=== PATIENT | female | born 1960 | race Caucasian/White ===

== ENCOUNTER 2017-08-30 18:14 | Observation (INO) | payer OTHER ==
[~2017-08-30] VITALS: Ht 149.9 cm; Wt 46.9 kg
[~2017-08-30 18:14] MED LIST: AMLO10TA2 PO; HYDR25TA5 PO
[2017-08-30 18:19] VITALS: BP 131/94; PULSE 84; RESP 16; TEMP 97.5; O2SAT 99
[2017-08-30] MEDS ORDERED: ASPI81CH6 CHEW (18:53)
[2017-08-30] MEDS ORDERED: PRED1 PO (18:53)
[2017-08-30] MEDS ORDERED: LISI2.5T3 PO (18:53)
[2017-08-30] MEDS ORDERED: SODIUM CHLORIDE 0.9% FLUSH 10 ML FLUSH IVF PRN (19:45)
[2017-08-30] MEDS ORDERED: ASPIRIN 325 MG TAB PO ONE (19:45)
[2017-08-30 19:47] VITALS: BP 120/73; PULSE 78; RESP 18; O2SAT 99
[2017-08-30 19:49] VITALS: BP 125/78; PULSE 81; RESP 18; O2SAT 99
[2017-08-30 20:09] LABS: AUTOMATED NEUTROPHIL # 9.7 TH/MM3 (1.8-7.7); BASOPHIL # 0.1 TH/MM3 (0-0.2); BASOPHIL % 0.6 % (0.0-2.0); EOSINOPHIL % 0.3 % (0.0-4.0); HEMATOCRIT 45.5 % (35.0-46.0); HEMOGLOBIN 15.1 GM/DL (11.6-15.3); LYMPH % 15.6 % (9.0-44.0); LYMPHOCYTE # 1.9 TH/MM3 (1.0-4.8); MEAN CELL VOLUME 91.1 FL (80.0-100.0); MEAN CORPUSCULAR HEMOGLOBIN 30.3 PG (27.0-34.0); MEAN CORPUSCULAR HGB CONC 33.3 % (32.0-36.0); MEAN PLATELET VOLUME 8.1 FL (7.0-11.0); MONO % 5.1 % (0.0-8.0); MONOCYTE # 0.6 TH/MM3 (0-0.9); NEUT % 78.4 % (16.0-70.0); PLATELET COUNT 378 TH/MM3 (150-450); RED CELL DISTRIBUTION WIDTH 12.3 % (11.6-17.2); WHITE BLOOD COUNT 12.3 TH/MM3 (4.0-11.0)
[2017-08-30 20:19] LABS: CHLORIDE 93 MEQ/L (98-107); SODIUM (NA) 126 MEQ/L (136-145)
[2017-08-30 20:23] LABS: ALBUMIN 3.8 GM/DL (3.4-5.0); BICARBONATE 21.5 MEQ/L (21.0-32.0); BLOOD UREA NITROGEN 10 MG/DL (7-18); CALCIUM 8.7 MG/DL (8.5-10.1); GLUCOSE,RANDOM 97 MG/DL (74-106)
[2017-08-30 20:25] LABS: PROTHROMBIN TIME - PATIENT 10.3 SEC (9.8-11.6)
[2017-08-30 20:26] LABS: ALT (GPT) 21 U/L (10-53); AST (GOT) 17 U/L (15-37); CREATININE 0.59 MG/DL (0.50-1.00); GLOMERULAR FILTRATION RATE 105 ML/MIN (>89)
[2017-08-30 20:28] LABS: TOTAL BILIRUBIN ADULT 0.4 MG/DL (0.2-1.0); TOTAL PROTEIN 7.4 GM/DL (6.4-8.2)
--- NOTE | 2017-08-30 20:28 | RADRPT ---
EXAM DATE/TIME: 08/30/2017 19:46 [facility] COMPARISON: No previous studies available for comparison. INDICATIONS : Chest pain/ MEDICAL HISTORY : None. SURGICAL HISTORY : None. ENCOUNTER: Initial ACUITY: 1 day PAIN SCORE: 5/10 LOCATION: Left chest FINDINGS: PA and lateral views of the chest demonstrate the lungs to be symmetrically aerated without evidence of mass, infiltrate or effusion. There is a small calcified granuloma in the right upper lung. The c ardiomediastinal contours are unremarkable. Osseous structures are intact. Pectus excavatum CONCLUSION: No acute pulmonary infiltrates. Jose Antonio Day MD on August 30, 2017 at 20:25 Board Certified Radiologist. This report was verified electronically.
[2017-08-30 20:29] LABS: ALKALINE PHOSPHATASE 64 U/L (45-117)
[2017-08-30] MEDS ORDERED: SODIUM CHLOR 0.9% 1000 ML INJ 1,000 ML IV ONE (20:30)
--- NOTE | 2017-08-30 20:30 | RADRPT ---
EXAM DATE/TIME: 08/30/2017 19:46 [facility] COMPARISON: No previous studies available for comparison. INDICATIONS : Back pain. Sciatica. MEDICAL HISTORY : None. SURGICAL HISTORY : None. ENCOUNTER: Initial ACUITY: 1 week PAIN SCORE: 10/10 LOCATION: L-spine FINDINGS: Two view examination was performed. There are five non-rib bearing vertebral bodies. There is grade 1 anterior spondylolisthesis of L4 over L5. No compression fractures are demonstrated. There is some mild degenerative changes present. There is good alignment of the SI joints.. CONCLUSION: 1. Grade 1 anterior spondylolisthesis of L4 over L5 2. Mild degenerative changes. Jose Antonio Day MD on August 30, 2017 at 20:26 Board Certified Radiologist. This report was verified electronically.
[2017-08-30 20:31] LABS: TROPONIN I LESS THAN 0.02 NG/ML (0.02-0.05)
[2017-08-30 20:43] LABS: BILIRUBIN, URINE NEG (NEG); BLOOD, URINE NEG (NEG); GLUCOSE,URINE NEG (NEG); KETONE, URINE NEG (NEG); NITRITE,URINE NEG (NEG); URINE LEUKOCYTE ESTERASE NEG (NEG)
[2017-08-30 20:51] LABS: URINE COLOR CLEAR (YELLW/STRAW)
[2017-08-30 20:57] LABS: SQUAMOUS EPITHELIAL CELL URINE 0-5 /hpf (0-5)
[2017-08-30] MEDS: SODIUM CHLORIDE 0.9% FLUSH 10 ML FLUSH IV FLUSH SCH (21:27)
[2017-08-30] MEDS ORDERED: SODIUM CHLORIDE 0.9% FLUSH 10 ML FLUSH IV FLUSH PRN (21:30)
[2017-08-30] MEDS ORDERED: CYCLOBENZAPRINE HCL 10 MG TAB PO ONE (21:30)
--- NOTE | 2017-08-30 21:40 | PD ---
HPI Chief Complaint: Pain: Acute or Chronic Time Seen by Provider: 19:27 Travel History International Travel<30 days: No Contact w/Intl Traveler<30days: No Traveled to known affect area: No History of Present Illness HPI Patient presents to the emergency department complaint of back pain and chest pain. Patient states that since last Friday she has had bouts with sciatic pain and saw her doctor on yesterday. gave her a steroid shot and placed her on prednisone. Complaining of extreme pain in her lower back with radiation down her left leg. Also states that she was putting up laundry and she developed chest pain left side also mid upper back pain. Left-sided chest pain is described as being intermittent, 5 minutes in duration, nonradiating, alleviated with rubbing, not rubbing aggravates the pain. Denies any trauma, fever, chills, dyspnea, edema, nausea, vomiting, recent travel, cough. 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 Of note the back pain has been present intermittently for 1 year. PFSH Past Medical History Hx Anticoagulant Therapy: Yes (BABY ASA) Cardiovascular Problems: Yes (HTN) Diabetes: No Hypertension: Yes Medical other: Yes (SCIATICA) Tetanus Vaccination: < 5 Years Influenza Vaccination: No ?: Not Menopausal: Yes Past Surgical History Section: Yes Social History Alcohol Use: Yes (6 PACK PER DAY) Tobacco Use: Yes (1 ppd) Substance Use: No Allergies-Medications (Allergen,Severity, Reaction): Coded Allergies: erythromycin base (Verified Adverse Reaction, Intermediate, NAUSEA, ) Reported Meds & Prescriptions Reported Meds & Active Scripts Active Reported Prednisone 1 Mg Tab Unknown Dose PO DIRECTED Aspirin Low Dose (Aspirin) 81 Mg Chew 81 Mg CHEW DAILY Lisinopril 2.5 Mg Tab Unknown Dose PO DAILY Amlodipine (Amlodipine Besylate) 10 Mg Tab 10 Mg PO DAILY Review of Systems Except as stated in HPI: all other systems reviewed are Neg Physical Exam Narrative GENERAL: No acute distress. SKIN: Focused skin assessment warm/dry. HEAD: Atraumatic. Normocephalic. EYES: Pupils equal and round. No scleral icterus. No injection or drainage. ENT: No nasal bleeding or discharge. Mucous membranes pink and moist. NECK: Trachea midline. No JVD. No focal C-spine tenderness. CARDIOVASCULAR: Regular rate and rhythm. No murmur appreciated. Chest wall TTP. RESPIRATORY: No accessory muscle use. Clear to auscultation. Breath sounds equal bilaterally. No focal T-spine tenderness. GASTROINTESTINAL: Abdomen soft, non-tender, nondistended. Hepatic and splenic margins not palpable. MUSCULOSKELETAL: No obvious deformities. No clubbing. No cyanosis. No edema. Positive L-spine tenderness. NEUROLOGICAL: Awake and alert. No obvious cranial nerve deficits. Motor grossly within normal limits. Normal speech. PSYCHIATRIC: Appropriate mood and affect; insight and judgment normal. Data Data Last Documented VS Vital Signs Date Time Temp Pulse Resp B/P (MAP) Pulse Ox O2 Delivery O2 Flow Rate FiO2 08/30/17 19:49 81 18 125/78 (94) 99 Room Air 08/30/17 18:19 97.5 Orders Orders Electrocardiogram (08/30/17 19:38) Ckmb (Isoenzyme) Profile (08/30/17 19:38) Complete Blood Count With Diff (08/30/17 19:38) Comprehensive Metabolic Panel (08/30/17 19:38) Magnesium (Mg) (08/30/17 19:38) Prothrombin Time / Inr (Pt) (08/30/17 19:38) Act Partial Throm Time (Ptt) (08/30/17 19:38) Troponin I (08/30/17 19:38) Ecg Monitoring (08/30/17 19:38) Iv Access Insert/Monitor (08/30/17 19:38) Oximetry (08/30/17 19:38) Aspirin (Aspirin) (08/30/17 19:45) Sodium Chloride 0.9% Flush (Ns Flush) (08/30/17 19:45) Chest, Pa & Lat (08/30/17 19:38) Spine, Lumbar - Ltd (Ap & Lat) (08/30/17 19:38) CKMB (08/30/17 19:56) CKMB% (08/30/17 19:56) Urinalysis - C+S If Indicated (08/30/17 20:29) Sodium Chlor 0.9% 1000 Ml Inj (Ns 1000 M (08/30/17 20:30) Cyclobenzaprine (Flexeril) (08/30/17 21:30) Place In Observation (08/30/17 21:18) Activity Bed Rest With Brp (08/30/17:18) Vital Signs (Adult) Q4H (08/30/17:18) Cardiac Rhythm .As Directed (08/30/17:) Notify Dr: Other .PRN (08/30/17:18) Notify Parameters (08/30/17:18) Resp Oxygen Nasal Cannula (08/30/17 ) Ckmb (Isoenzyme) Profile (08/30/17 23:00) Ckmb (Isoenzyme) Profile (08/31/17 02:00) Troponin I (08/30/17 23:00) Troponin I (08/31/17 02:00) Electrocardiogram (08/30/17 23:00) Electrocardiogram (08/31/17 02:00) ^ Obtain (08/30/17:18) Sodium Chloride 0.9% Flush (Ns Flush) (08/30/17 21:30) Sodium Chloride 0.9% Flush (Ns Flush) (08/30/17 21:30) Canceling And Cutting Control Clerk / Telemetry [email or web address] (08/30/17:18) Admit Order (Ed Use Only) (08/30/17 21:18) Labs Laboratory Tests Test 08/30/17 19:56 08/30/17 20:36 White Blood Count 12.3 TH/MM3 Red Blood Count 5.00 MIL/MM3 Hemoglobin 15.1 GM/DL Hematocrit 45.5 % Mean Corpuscular Volume 91.1 FL Mean Corpuscular Hemoglobin 30.3 PG Mean Corpuscular Hemoglobin Concent 33.3 % Red Cell Distribution Width 12.3 % Platelet Count 378 TH/MM3 Mean Platelet Volume 8.1 FL Neutrophils (%) (Auto) 78.4 % Lymphocytes (%) (Auto) 15.6 % Monocytes (%) (Auto) 5.1 % Eosinophils (%) (Auto) 0.3 % Basophils (%) (Auto) 0.6 % Neutrophils # (Auto) 9.7 TH/MM3 Lymphocytes # (Auto) 1.9 TH/MM3 Monocytes # (Auto) 0.6 TH/MM3 Eosinophils # (Auto) 0.0 TH/MM3 Basophils # (Auto) 0.1 TH/MM3 CBC Comment DIFF FINAL Differential Comment Prothrombin Time 10.3 SEC Prothromb Time International Ratio 1.0 RATIO Activated Partial Thromboplast Time 26.4 SEC Blood Urea Nitrogen 10 MG/DL Creatinine 0.59 MG/DL Random Glucose 97 MG/DL Total Protein 7.4 GM/DL Albumin 3.8 GM/DL Calcium Level 8.7 MG/DL Magnesium Level 2.0 MG/DL Alkaline Phosphatase 64 U/L Aspartate Amino Transf (AST/SGOT) 17 U/L Alanine Aminotransferase (ALT/SGPT) 21 U/L Total Bilirubin 0.4 MG/DL Sodium Level 126 MEQ/L Potassium Level 3.6 MEQ/L Chloride Level 93 MEQ/L Carbon Dioxide Level 21.5 MEQ/L Anion Gap 12 MEQ/L Estimat Glomerular Filtration Rate 105 ML/MIN Total Creatine Kinase 270 U/L Creatine Kinase MB 0.8 NG/ML Creatine Kinase MB % 0.3 % Troponin I LESS THAN 0.02 NG/ML Urine Color CLEAR Urine Turbidity CLEAR Urine pH 5.0 Urine Specific [place] LESS/EQUAL 1.005 Urine Protein NEG mg/dL Urine Glucose (UA) NEG mg/dL Urine Ketones NEG mg/dL Urine Occult Blood NEG Urine Nitrite NEG Urine Bilirubin NEG Urine Urobilinogen 0.2 MG/DL Urine Leukocyte Esterase NEG Urine Squamous Epithelial Cells 0-5 /hpf Microscopic Urinalysis Comment CULT NOT INDICATED MDM Medical Decision Making Medical Screen Exam Complete: Yes Emergency Medical Condition: Yes Interpretation(s) ECG: SR, rate 77, LAE, Labs: Elevated white count, possibly secondary to steroid injection and prednisone taper yesterday, UA negative, decreased sodium, elevated CK Last Impressions Lumbar Spine X-Ray 08/30/171937 Signed Impressions: Service Date/Time: Wednesday, August 30, 2017 19:46 - CONCLUSION: 1. Grade 1 anterior spondylolisthesis of L4 over L5 2. Mild degenerative changes. Jose Antonio Day MD Chest X-Ray 08/30/171937 Signed Impressions: Service Date/Time: Wednesday, August 30, 2017 19:46 - CONCLUSION: No acute pulmonary infiltrates. Jose Antonio Day MD Differential Diagnosis Sciatic back pain, degenerative disc disease, musculoskeletal chest pain, ACS Narrative Course Patient presents emergency department complaining of chronic back pain and left sided chest pain. She is afebrile vital signs stable. Will check EKG, cardiac enzymes, coags, CBC, chemistry, UA, chest x-ray, L-spine x-ray. Will also give 325 mg p.o. aspirin. 2109: Patient's pain likely musculoskeletal, but she does have risk factors for cardiac disease. Will admit patient to chest pain obs. Patient given 10mg po flexeril at the request of the admit MD for the back pain. Also given 1L IV NS. Physician Communication Physician Communication Spoke to Dr. Mcneal patient is admitted to chest pain center for observation. Requested that I give patient Flexeril for back pain. Diagnosis Primary Impression: Chest pain Qualified Codes: R07.89 - Other chest pain Additional Impression: Back pain Qualified Codes: M54.42 - Lumbago with sciatica, left side; G89.29 - Other chronic pain Admitting Information Admitting Physician Requests: Observation Condition: Stable Glenis Britton MD August 30, 2017 21:40
[2017-08-30 22:49] VITALS: BP 152/80; PULSE 82; RESP 18; O2SAT 98
[2017-08-30 23:35] VITALS: BP 114/63; PULSE 82; RESP 16; TEMP 96.5; O2SAT 97
[2017-08-30 23:42] VITALS: PULSE 73
[2017-08-30 23:52] LABS: TROPONIN I LESS THAN 0.02 NG/ML (0.02-0.05)
[2017-08-31] MEDS ORDERED: MORPHINE SULFATE 4 MG/ML INJ IV PUSH ONE
[2017-08-31] MEDS ORDERED: RIVA1DIS2 T-DERMAL (01:01)
[2017-08-31 01:15] VITALS: O2SAT 95
[2017-08-31 03:28] LABS: TROPONIN I LESS THAN 0.02 NG/ML (0.02-0.05)
[2017-08-31 05:32] VITALS: BP 107/60; PULSE 63; RESP 15; TEMP 99; O2SAT 95
--- NOTE | 2017-08-31 07:52 | HHI.HP ---
[facility] Service [facility] Primary Care Physician Carlin Johnson M.D. Admission Diagnosis CHEST PAIN, BACK PAIN Diagnoses: (1) Chest pain Diagnosis: Principal (2) Back pain Diagnosis: Principal Chief Complaint: Chest pain, back pain Travel History International Travel<30 Days: No Contact w/Intl Traveler <30 Da: No Traveled to Known Affected Are: No History of Present Illness 57-year-old female with known history of hypertension, tobacco use who presented to the hospital because of chest discomfort. Patient states that she has been suffering from low back pain with radiation down her left leg for approximately 1 week. She did go to her prior medical doctor's office on Friday and was given a cortisone injection and discharged home on prednisone. Patient states that her back pain has not significantly improved she still having significant pain down the lower left leg. Patient was doing laundry yesterday and then she is started developing a pain in her mid back that radiates out into her anterior chest on the left side at approximately 3 PM the pain was a 7/10 on a pain scale, described as a dull aching pain. It was improved with holding pressure on her chest. Patient denied any nausea, vomiting, diaphoresis, shortness of breath, dyspnea, lightheadedness, dizziness because the pain did not go away she came to the emergency department for evaluation. Patient had initial workup done which was unremarkable. Because of her risk factors it was recommended by the ER physician that the patient be observed in chest pain center. Currently patient is still having the pain which is a 4/10 on a pain scale. The pain has not subsided since it began yesterday. Review of Systems Cardiovascular: COMPLAINS OF: Chest pain Musculoskeletal: COMPLAINS OF: Back pain Except as stated in HPI: all other systems reviewed are Neg Past Family Social History Past Medical History Hypertension Chronic tobacco use Past Surgical History 3 Reported Medications Last Impressions Lumbar Spine X-Ray 08/30/171937 Signed Impressions: Service Date/Time: Wednesday, August 30, 2017 19:46 - CONCLUSION: 1. Grade 1 anterior spondylolisthesis of L4 over L5 2. Mild degenerative changes. Jose Antonio Day MD Chest X-Ray 08/30/171937 Signed Impressions: Service Date/Time: Wednesday, August 30, 2017 19:46 - CONCLUSION: No acute pulmonary infiltrates. Jose Antonio Day MD Allergies: Coded Allergies: erythromycin base (Verified Adverse Reaction, Intermediate, NAUSEA, ) Family History Family history reviewed and significant for diabetes, no indications of any heart disease, lung disease, kidney disease, seizures, stroke Social History Patient continues smoke a pack of cigarettes a day since she was 18 years old. She does use alcohol roughly a sixpack of beer daily. Denies any illicit drug use Physical Exam Vital Signs Vital Signs Date Time Temp Pulse Resp B/P (MAP) Pulse Ox O2 Delivery O2 Flow Rate FiO2 08/31/17 05:32 99.0 63 15 107/60 (76) 95 08/31/17 01:15 95 21 08/30/17 23:42 73 08/30/17 23:35 96.5 82 16 114/63 (80) 97 08/30/17 23:19 08/30/17 22:49 82 18 152/80 (104) 98 Room Air 08/30/17 19:49 81 18 125/78 (94) 99 Room Air 08/30/17 19:47 78 18 120/73 (89) 99 Room Air 08/30/17 18:19 97.5 84 16 131/94 (106) 99 Physical Exam GENERAL: Well-developed, well-nourished, in no acute distress. alert and orientated HEENT: Head is normocephalic without any lesions or masses noted. Facial features are symmetric. Eyes: Pupils equal round reactive to light. Extraocular muscles are intact. Conjunctivae were clear. Oropharyngeal: Pharynx without any erythema edema. Tongue is midline without deviation. Buccal mucosa is moist without any masses or lesions NECK: Supple without any masses. Trachea midline no deviation. No JVD, no bruits are appreciated CARDIAC: Regular rhythm, regular rate. S1/S2 are heard. No murmurs gallops or rubs. Reproducible palpable tenderness noted on the left anterior chest LUNGS: Clear to auscultation bilaterally. No wheeze, rhonchi or rales. No use of accessory muscles on inspiration or expiration. ABDOMEN: Soft, nontender. Nondistended. Bowel sounds heard in all 4 quadrants. No organomegaly or masses. Negative rebound, negative guarding EXTREMITIES: No edema, pulses are equal bilaterally. No cyanosis or clubbing NEUROLOGY: Mood and affect appear appropriate. Cranial nerves II through XII grossly intact. Muscle strength 5/5 in upper and lower extremities bilaterally. Deep tendon reflexes are 2+ in upper and lower extremities bilaterally. Laboratory Laboratory Tests Test 08/30/17 19:56 08/30/17 20:36 08/30/17 23:02 08/31/17 02:50 White Blood Count 12.3 Red Blood Count 5.00 Hemoglobin 15.1 Hematocrit 45.5 Mean Corpuscular Volume 91.1 Mean Corpuscular Hemoglobin 30.3 Mean Corpuscular Hemoglobin Concent 33.3 Red Cell Distribution Width 12.3 Platelet Count 378 Mean Platelet Volume 8.1 Neutrophils (%) (Auto) 78.4 Lymphocytes (%) (Auto) 15.6 Monocytes (%) (Auto) 5.1 Eosinophils (%) (Auto) 0.3 Basophils (%) (Auto) 0.6 Neutrophils # (Auto) 9.7 Lymphocytes # (Auto) 1.9 Monocytes # (Auto) 0.6 Eosinophils # (Auto) 0.0 Basophils # (Auto) 0.1 CBC Comment DIFF FINAL Differential Comment Prothrombin Time 10.3 Prothromb Time International Ratio 1.0 Activated Partial Thromboplast Time 26.4 Blood Urea Nitrogen 10 Creatinine 0.59 Random Glucose 97 Total Protein 7.4 Albumin 3.8 Calcium Level 8.7 Magnesium Level 2.0 Alkaline Phosphatase 64 Aspartate Amino Transf (AST/SGOT) 17 Alanine Aminotransferase (ALT/SGPT) 21 Total Bilirubin 0.4 Sodium Level 126 Potassium Level 3.6 Chloride Level 93 Carbon Dioxide Level 21.5 Anion Gap 12 Estimat Glomerular Filtration Rate 105 Total Creatine Kinase 270 280 234 Creatine Kinase MB 0.8 0.7 0.8 Creatine Kinase MB % 0.3 0.3 0.3 Troponin I LESS THAN 0.02 LESS THAN 0.02 LESS THAN 0.02 Urine Color CLEAR Urine Turbidity CLEAR Urine pH 5.0 Urine Specific [place] LESS/EQUAL 1.005 Urine Protein NEG Urine Glucose (UA) NEG Urine Ketones NEG Urine Occult Blood NEG Urine Nitrite NEG Urine Bilirubin NEG Urine Urobilinogen 0.2 Urine Leukocyte Esterase NEG Urine Squamous Epithelial Cells 0-5 Microscopic Urinalysis Comment CULT NOT INDICATED Result Diagram: 08/30/17195508/30/171955 Imaging Last Impressions Lumbar Spine X-Ray 08/30/171937 Signed Impressions: Service Date/Time: Wednesday, August 30, 2017 19:46 - CONCLUSION: 1. Grade 1 anterior spondylolisthesis of L4 over L5 2. Mild degenerative changes. Jose Antonio Day MD Chest X-Ray 08/30/171937 Signed Impressions: Service Date/Time: Wednesday, August 30, 2017 19:46 - CONCLUSION: No acute pulmonary infiltrates. MD Karie Delgado VTE Risk Assessment Caprini VTE Risk Assessment: No/Low Risk (score <= 1) Caprini Risk Assessment Model Point Value = 1 Point Value = 2 Point Value = 3 Point Value = 5 Age 41-60 Minor surgery BMI > 25 kg/m2 Swollen legs Varicose veins or History of unexplained or recurrent spontaneous Oral contraceptives or hormone replacement Sepsis (< 1 month) Serious lung disease, including pneumonia (< 1 month) Abnormal pulmonary function Acute myocardial infarction Congestive heart failure (< 1 month) History of inflammatory bowel disease Medical patient at bed rest Age 61-74 Arthroscopic surgery Major open surgery (> 45 min) Laparoscopic surgery (> 45 min) Malignancy Confined to bed (> 72 hours) Immobilizing plaster cast Central venous access Age >= 75 History of VTE Family history of VTE Factor V Leiden Prothrombin [id number] Lupus anticoagulant Anticardiolipin antibodies Elevated serum homocysteine Heparin-induced thrombocytopenia Other congenital or acquired thrombophilia Stroke (< 1 month) Elective arthroplasty Hip, pelvis, or leg fracture Acute spinal cord injury (< 1 month) Prophylaxis Regimen Total Risk Factor Score Risk Level Prophylaxis Regimen 0-1 Low Early ambulation 2 Moderate Order ONE of the following: *Sequential Compression Device (SCD) *Heparin 5000 units SQ BID 3-4 Higher Order ONE of the following medications: *Heparin 5000 units SQ TID *Enoxaparin/Lovenox 40 mg SQ daily (WT < 150 kg, CrCl > 30 mL/min) *Enoxaparin/Lovenox 30 mg SQ daily (WT < 150 kg, CrCl > 10-29 mL/min) *Enoxaparin/Lovenox 30 mg SQ BID (WT < 150 kg, CrCl > 30 mL/min) AND/OR *Sequential Compression Device (SCD) 5 or more Highest Order ONE of the following medications: *Heparin 5000 units SQ TID (Preferred with Epidurals) *Enoxaparin/Lovenox 40 mg SQ daily (WT < 150 kg, CrCl > 30 mL/min) *Enoxaparin/Lovenox 30 mg SQ daily (WT < 150 kg, CrCl > 10-29 mL/min) *Enoxaparin/Lovenox 30 mg SQ BID (WT < 150 kg, CrCl > 30 mL/min) AND *Sequential Compression Device (SCD) Assessment and Plan Assessment and Plan Chest pain, atypical -Patient with increased risk factors include age, hypertension, postmenopausal without hormones, chronic tobacco use -Patient has been ruled out for acute coronary event with serial cardiac enzymes are negative -EKGs were reviewed by myself which showed sinus rhythm without any acute abnormality or changes -Patient unable to perform exercise stress test due to back pain and radiculopathy. Myocardial perfusion study was performed and indicated no signs of ischemia, low risk -Continue aspirin and nitroglycerin as needed -Continue monitor telemetry Back pain with radicular symptoms -Continue pain control, muscle relaxer -Counseled patient on continue follow-up with her primary medical doctor and if her symptoms do not improve she may need to have referral to the pain management doctor for continued management Hypertension -Continue home medication DVT prevention -Low risk, early ambulation Discharge disposition Discharge home in stable condition Activity: Ad liliya. Diet: Healthy heart diet Medication per medication reconciliation Follow-up with primary medical doctor in 1 week Problem Qualifiers (1) Chest pain: Qualified Codes: R07.89 - Other chest pain (2) Back pain: Qualified Codes: M54.42 - Lumbago with sciatica, left side; G89.29 - Other chronic pain Ender Ennis August 31, 2017 07:52
[2017-08-31 08:00] VITALS: PULSE 78
[2017-08-31] MEDS ORDERED: ASPIRIN 81 MG CHEW TAB CHEW SCH (09:00)
[2017-08-31 09:01] VITALS: BP 105/72; PULSE 76; RESP 18; TEMP 97.7; O2SAT 97
[2017-08-31] MEDS: SODIUM CHLORIDE 0.9% FLUSH 10 ML FLUSH IV FLUSH SCH (09:05)
[2017-08-31] MEDS ORDERED: REGADENOSON INJ 0.4 MG/5 ML SYR IV ONE (11:28)
[2017-08-31] MEDS ORDERED: ACETAMINOPHEN/HYDROcodone 325 MG/5 MG TAB PO PRN (12:15)
--- NOTE | 2017-08-31 12:37 | RADRPT ---
EXAM DATE/TIME: 08/31/2017 11:00 [facility] COMPARISON: No previous studies available for comparison. INDICATIONS : Left sided chest pain. Angina. DOSE: 26.3 mCi Tc99m Myoview at stress. 8.2 mCi Tc99m Myoview at rest. 0.4 mg Lexiscan STRESS SYMPTOMS: None. EJECTION FRACTION: > 70% MEDICAL HISTORY : Hypertension. Smoker. SURGICAL HISTORY : section. ENCOUNTER: Initial ACUITY: 2 days PAIN SCALE: 7/10 LOCATION: Left chest TECHNIQUE: The patient underwent pharmacologic stress with infusion of prescribed dose. Continuous ECG tracing was monitored during stress. Gated SPECT imaging was performed after stress and conventional SPECT i maging was performed at rest. The examination was performed on a SPECT/CT scanner, both attenuation and non-corrected datasets were reviewed. FINDINGS: DISTRIBUTION: The maximum perfused segment at stress is in the anterior lateral wall PERFUSION STUDY: The pattern of perfusion at stress is within normal limits. GATED STUDY: There is intact wall motion and thickening without hypokinetic or dyskinetic segments. CONCLUSION: Negative for stress-induced ischemia. RISK CATEGORY: Low (<1% Annual Mortality Rate) Ritchie Zhang MD FACR on August 31, 2017 at 12:34 Board Certified Radiologist. This report was verified electronically.
[2017-08-31] MEDS ORDERED: CYCL5TAB PO (12:49)
--- NOTE | 2017-08-31 12:49 | HHI.DCPOC ---
Discharge Care Plan Diagnosis: (1) Chest pain (2) Back pain Goals to Promote Your Health * To prevent worsening of your condition and complications * To maintain your health at the optimal level Directions to Meet Your Goals Take your medications as prescribed Follow your dietary instruction Follow activity as directed Keep your appointments as scheduled Take your immunizations and boosters as scheduled If your symptoms worsen call your PCP, if no PCP go to Urgent Care Center or Emergency Room Smoking is Dangerous to Your Health. Avoid second hand smoke Call the 24-hour hour crisis hotline for domestic abuse at Ender Ennis August 31, 2017 12:49
--- NOTE | 2017-08-31 12:53 | TR ---
Date Performed: 08/31/2017 Time Performed: 11:38:33 DOCTOR: Gurmeet Gerardo DRUG LIST: CLINICAL HISTORY: REASON FOR TEST: REASON FOR ENDING: OBSERVATION: CONCLUSION: Lexiscan stress test was performed under standard four minute protocol. Radionuclide was injected one minute prior to ending the test. No electrocardiographic abormalities were present to suggest ischemia. Nuclear imaging and interpretation are pending. COMMENTS:
[2017-08-31 13:07] VITALS: BP 101/73; PULSE 67; RESP 18; TEMP 97.9; O2SAT 96
[2017-08-31 13:46] VITALS: RESP 18
--- NOTE | 2017-08-31 17:10 | EKG ---
Date Performed: 08/31/2017 Time Performed: 02:09:09 PTAGE: 57 years EKG: Sinus rhythm NORMAL ECG PREVIOUS TRACING : 08/30/2017 23.09 Since the previous tracing, no significant change noted DOCTOR: Akira Tucker Interpretating Date/Time 08/31/2017 17:09:39
--- NOTE | 2017-08-31 17:14 | EKG ---
Date Performed: 08/30/2017 Time Performed: 23:09:17 PTAGE: 57 years EKG: Sinus rhythm POSSIBLE LEFT ATRIAL ENLARGEMENT BORDERLINE ECG PREVIOUS TRACING : 08/30/2017 19.49 Since the previous tracing, no significant change noted DOCTOR: Akira Tucker Interpretating Date/Time 08/31/2017 17:13:18
--- NOTE | 2017-08-31 17:27 | EKG ---
Date Performed: 08/30/2017 Time Performed: 19:49:02 PTAGE: 57 years EKG: Sinus rhythm POSSIBLE LEFT ATRIAL ENLARGEMENT BORDERLINE ECG NO PREVIOUS TRACING DOCTOR: Akira Tucker Interpretating Date/Time 08/31/2017 17:25:38
== END 2017-08-31 15:40 | disposition home or self-care (01) ==
LOC: PHED 18:14 → PHEDA 21:25 → PH3A 23:17
PROVIDERS: ADMIT Hospitalist; ATTEND Hospitalist
DX: R07.89 Other chest pain (principal); M54.42 Lumbago with sciatica, left side; G89.29 Other chronic pain; I10 Essential (primary) hypertension; R94.31 Abnormal electrocardiogram [ECG] [EKG]; M54.10 Radiculopathy, site unspecified; F17.210 Nicotine dependence, cigarettes, uncomplicated; Z83.3 Family history of diabetes mellitus
CPT/HCPCS: 71046; 72100; 78452; 80053; 81001; 82550; 82552; 83735; 84484; 85025; 85610; 85730; 93005; 93017; 96361; 96374; 99285; A9502; G0378; J2270; J2785; J7030